=== PATIENT | female | born 1950 | race Caucasian/White ===

== ENCOUNTER 2017-08-18 08:00 | Outpatient (CLI) | payer MEDICARE, BC ==
[2017-08-18 13:04] LABS: BASOPHILS % (AUTO) 0.5 %; EOSINOPHILS # (AUTO) 0.2 10^3/uL (0.0-0.7); EOSINOPHILS % (AUTO) 3.4 %; HCT - HEMATOCRIT 39.3 % (37.0-47.0); HGB - HEMOGLOBIN 13.1 g/dL (12.0-16.0); LYMPHOCYTES # (AUTO) 1.3 10^3/uL (1.5-3.5); LYMPHOCYTES % (AUTO) 24.9 %; MEAN CORPUSCULAR HEMOGLOBIN 30.2 pg (27.0-31.0); MEAN CORPUSCULAR HGB CONC 33.3 g/dL (32.0-36.0); MEAN CORPUSCULAR VOLUME 90.6 fL (81.0-99.0); MEAN PLATELET VOLUME 7.8 fL (7.9-10.8); MONOCYTES # (AUTO) 0.3 10^3/uL (0.0-1.0); MONOCYTES % (AUTO) 6.2 %; NEUTROPHILS # (AUTO) 3.3 10^3/uL (1.5-6.6); RED BLOOD COUNT 4.34 10^6/uL (4.20-5.40); RED CELL DISTRIBUTION WIDTH 12.9 % (12.0-15.0); UNCORRECTED WHITE BLOOD COUNT 5.1 x10^3/uL; WHITE BLOOD COUNT 5.1 x10^3/uL (4.8-10.8)
[2017-08-18 13:31] LABS: ALBUMIN/GLOBULIN RATIO 1.5 (1.0-2.2); BILIRUBIN,TOTAL 0.7 mg/dL (0.2-1.0); BUN - BLOOD UREA NITROGEN 19 mg/dL (6-20); CALCIUM 9.5 mg/dL (8.5-10.3); CARBON DIOXIDE - CO2 27 mmol/L (21-32); CHLORIDE 105 mmol/L (101-111); CHOL/HDL RATIO 4.4 (<4.4); CHOLESTEROL 174 mg/dL; GFR - MDRD 56 (>89); GLUCOSE 90 mg/dL (70-100); HDL CHOLESTEROL 40 mg/dL; LDL/HDL RATIO 2.8 (<4.4); POTASSIUM 4.2 mmol/L (3.5-5.0); SODIUM 139 mmol/L (135-145); TOTAL PROTEIN 7.5 g/dL (6.7-8.2); TRIGLYCERIDES 116 mg/dL; VLDL CHOLESTEROL 23 mg/dL
== END 2017-08-18 08:01 | disposition home or self-care (01) ==
LOC: LAB.WCP 08:00
PROVIDERS: ATTEND Physician Assistant Medical
DX: Z00.00 Encounter for general adult medical examination without abnormal findings (principal); E78.5 Hyperlipidemia, unspecified
CPT/HCPCS: 36415; 80053; 80061; 84443; 85025

== ENCOUNTER 2017-09-29 08:07 | Outpatient (CLI) | payer MEDICARE, OTHER ==
--- NOTE | 2017-10-01 09:38 | Mammography Report ---
DIGITAL SCREENING MAMMOGRAM: 09/29/2017 CLINICAL INDICATION: A 67-year-old nulliparous patient, with history of benign biopsy and bilateral reduction, for screening. COMPARISON: 06/2016, 03/2015, 03/2014, 07/2012, 02/2011, 11/2009. TECHNIQUE: Routine CC and MLO projections were obtained of the breasts. FINDINGS: The breasts demonstrate scattered fibroglandular densities bilaterally. Coarse and punctate, typically benign calcifications are present. Postsurgical changes are stable. No suspicious masses, clustered microcalcifications, or regions of architectural distortion are identified. IMPRESSION: BENIGN FINDINGS. RECOMMENDATION: ROUTINE ANNUAL SCREENING UNLESS OTHERWISE CLINICALLY INDICATED. BIRADS CATEGORY 2 - BENIGN FINDINGS. STANDARD QUALIFYING STATEMENTS 1. This examination was reviewed with the aid of Computer-Aided Detection (CAD). 2. A negative or benign imaging report should not delay biopsy if clinically suspicious findings are present. Consider surgical consultation if warranted. More than 5% of cancers are not identified by imaging. 3. Dense breasts may obscure an underlying neoplasm. brendon TD: 10/01/2017 09:37 BUTCH
== END 2017-09-29 08:08 | disposition home or self-care (01) ==
LOC: DI 08:07
PROVIDERS: ATTEND Physician Assistant Medical
DX: Z12.31 Encounter for screening mammogram for malignant neoplasm of breast (principal)
CPT/HCPCS: 77067

== ENCOUNTER 2018-09-11 15:42 | Emergency (ER) | payer MEDICARE, OTHER ==
--- NOTE | 2018-09-11 16:38 | XRAY Report ---
Reason: Trauma Procedure Date: 09/11/2018 Accession Number: [id number] / [id number] Procedure: XR - Wrist 4 View LT CPT Code: FULL RESULT: EXAM: LEFT WRIST RADIOGRAPHY EXAM DATE: 09/11/2018 04:03 PM. CLINICAL HISTORY: Trauma. Fell onto left wrist, most pain on lateral side of wrist. COMPARISON: HAND 3 VIEW RT 07/04/2015 6:32 PM. TECHNIQUE: 4 views. FINDINGS: Bones: Distal radial articular lucency seen best on the PA view, could represent artifact versus a nondisplaced acute distal radial fracture. A 1 week follow-up x-ray could reevaluate for evidence of healing. Moderate dorsal wrist soft tissue swelling. Otherwise, no evidence for acute fracture. Joints: Minimal first carpometacarpal osteoarthritis. No subluxation. IMPRESSION: Distal radial articular lucency seen best on the PA view, could represent artifact versus a nondisplaced acute distal radial fracture. A 1 week follow-up x-ray could reevaluate for evidence of healing. Moderate dorsal wrist soft tissue swelling. Otherwise, no evidence for acute fracture. RADIA
[2018-09-11 20:12] VITALS: BP 144/63
== END 2018-09-11 17:20 | disposition left against medical advice (07) ==
LOC: ED 15:42
DX: M25.532 Pain in left wrist (principal); Z53.21 Procedure and treatment not carried out due to patient leaving prior to being seen by health care provider

== ENCOUNTER 2018-09-11 23:43 | Emergency (ER) | payer MEDICARE, OTHER ==
[2018-09-11 23:55] VITALS: BP 127/64
--- NOTE | 2018-09-12 00:46 | ED Physician Documentation ---
PD HPI UPPER EXT INJURY - Stated complaint Stated Complaint: LT HAND INJURY - Chief complaint Chief Complaint: Ext Problem - History obtained from History obtained from: Patient - History of Present Illness Location: Left, Wrist Type of injury: Fall Timing - onset: Enter time (13:00), Today Timing - details: Abrupt onset Pain level now: 10 Improved by: Rest Worsened by: Moving, Palpating Associated symptoms: Swelling. No: Weakness, Numbness, Discolored Contributing factors: No: Anticoagulated - Additonal information Additional information: fell backwards onto outstretched LUE, sudden onset left wrist pain. Patient is right hand dominant. Incident occurred at 1 PM today. She was in the ED earlier today, had left wrist xrays but left before results could be reviewed with patient. Returns due to ongoing/worsening pain left wrist. Review of Systems Musculoskeletal: reports: Joint pain, Joint swelling Neurologic: denies: Focal weakness, Numbness PD PAST MEDICAL HISTORY - Past Medical History Past Medical History: Yes Cardiovascular: None Respiratory: None Neuro: None Endocrine/Autoimmune: None GI: GERD HEATING ENGINEER: None : None HEENT: None Psych: None Musculoskeletal: None Derm: None - Past Surgical History Past Surgical History: Yes /HEATING ENGINEER: Hysterectomy, Oophrectomy - Present Medications Home Medications: Ambulatory Orders Medication Instructions Recorded Confirmed HYDROcodone/ACET 10/325 [[place] 10 1 tab ORAL TID 07/04/15 07/04/15 mg/325 mg] Lansoprazole [Prevacid] 15 mg ORAL DAILY 07/04/15 07/04/15 Sertraline HCl [Zoloft] 75 mg ORAL DAILY 07/04/15 07/04/15 Atorvastatin [Lipitor] 09/11/18 09/11/18 - Allergies Allergies/Adverse Reactions: Allergies Allergy/AdvReac Type Severity Reaction Status Date / Time No Known Drug Allergies Allergy Verified 09/11/18 23:55 - Social History Does the pt smoke?: No Smoking Status: Never smoker Does the pt drink ETOH?: No Does the pt have substance abuse?: No - Immunizations Immunizations are current?: Yes - POLST Patient has POLST: No PD ED PE NORMAL - Vitals Vital signs reviewed: Yes - General General: Alert and oriented X 3, Well developed/nourished, Other (appears uncomfortable) - Neuro Neuro: No motor deficit, No sensory deficit PD ED PE EXPANDED - Extremities MO UE/Hands Visual: 1 - swelling, tenderness Results - Vitals Vitals: Oxygen O2 Source Room air PD MEDICAL DECISION MAKING - ED course Complexity details: considered differential, d/w patient ED course: reviewed xrays (performed on previous ED visit). suspicious for distal radius fracture, and clinical findings (swelling, tenderness) with this location. Patient appears to be uncomfortable, but she declines analgesia; she says she has pain medication at home and does not want anything else Departure - Departure Disposition: 01 Home, Self Care Clinical Impression: Distal radius fracture, left Qualifiers: Encounter type: initial encounter Fracture type: closed Fracture morphology: unspecified fracture morphology Qualified Code(s): S52.502A - Unspecified fracture of the lower end of left radius, initial encounter for closed fracture Condition: Good Instructions: ED Fx Wrist General Follow-Up: Juan Jose Gamez MD [Provider Admit Priv/Credential] - Within 1 week Discharge Date/Time: 09/12/18 01:29
== END 2018-09-12 01:29 | disposition home or self-care (01) ==
LOC: ED 23:43
DX: S52.502A Unspecified fracture of the lower end of left radius, initial encounter for closed fracture (principal); W18.30XA Fall on same level, unspecified, initial encounter; W22.09XA Striking against other stationary object, initial encounter
CPT/HCPCS: 99283

== ENCOUNTER 2018-11-10 08:00 | Outpatient (CLI) | payer MEDICARE, OTHER ==
[2018-11-10 12:59] LABS: BASOPHILS % (AUTO) 0.4 %; EOSINOPHILS # (AUTO) 0.1 10^3/uL (0.0-0.7); EOSINOPHILS % (AUTO) 2.6 %; HGB - HEMOGLOBIN 14.4 g/dL (12.0-16.0); LYMPHOCYTES # (AUTO) 1.2 10^3/uL (1.5-3.5); LYMPHOCYTES % (AUTO) 22.1 %; MEAN CORPUSCULAR HEMOGLOBIN 29.8 pg (27.0-31.0); MEAN CORPUSCULAR HGB CONC 32.5 g/dL (32.0-36.0); MEAN CORPUSCULAR VOLUME 91.6 fL (81.0-99.0); MEAN PLATELET VOLUME 8.2 fL (7.9-10.8); MONOCYTES # (AUTO) 0.3 10^3/uL (0.0-1.0); MONOCYTES % (AUTO) 6.3 %; NEUTROPHILS # (AUTO) 3.8 10^3/uL (1.5-6.6); NEUTROPHILS % (AUTO) 68.6 %; PLT - PLATELET COUNT 261 10^3/uL (130-450); RED BLOOD COUNT 4.83 10^6/uL (4.20-5.40); RED CELL DISTRIBUTION WIDTH 13.1 % (12.0-15.0); WHITE BLOOD COUNT 5.5 x10^3/uL (4.8-10.8)
[2018-11-10 13:09] LABS: ALBUMIN 4.5 g/dL (3.2-5.5); ALBUMIN/GLOBULIN RATIO 1.5 (1.0-2.2); ALKALINE PHOSPHATASE 83 IU/L (42-121); ALT ALANINE AMINOTRANSFERASE 37 IU/L (10-60); AST ASPARTATE AMINOTRANSFERASE 29 IU/L (10-42); BILIRUBIN,TOTAL 0.7 mg/dL (0.2-1.0); BUN - BLOOD UREA NITROGEN 24 mg/dL (6-20); CALCIUM 9.4 mg/dL (8.5-10.3); CARBON DIOXIDE - CO2 27 mmol/L (21-32); CHLORIDE 97 mmol/L (101-111); CHOL/HDL RATIO 4.1 (<4.4); CHOLESTEROL 188 mg/dL; CREATININE 0.8 mg/dL (0.4-1.0); GFR - MDRD 72 (>89); GLUCOSE 99 mg/dL (70-100); HDL CHOLESTEROL 46 mg/dL; LDL CHOLESTEROL,CALCULATED 117 mg/dL; LDL/HDL RATIO 2.5 (<4.4); SODIUM 132 mmol/L (135-145); TOTAL PROTEIN 7.6 g/dL (6.7-8.2); VLDL CHOLESTEROL 25 mg/dL
== END 2018-11-10 23:59 | disposition home or self-care (01) ==
LOC: LAB.WCP 08:00
PROVIDERS: ATTEND Family Medicine
DX: E78.5 Hyperlipidemia, unspecified (principal); Z51.81 Encounter for therapeutic drug level monitoring
CPT/HCPCS: 36415; 80053; 80061; 83721; 85025

== ENCOUNTER 2018-11-30 08:00 | Outpatient (CLI) | payer MEDICARE, OTHER | END 2018-11-30 23:59 | disposition home or self-care (01) | LOC: LAB.R 08:00 | PROVIDERS: ATTEND Physician Assistant Medical | DX: R35.0 Frequency of micturition (principal) | CPT/HCPCS: 87086 ==

== ENCOUNTER 2019-03-18 08:00 | Outpatient (CLI) | payer MEDICARE, OTHER ==
[2019-03-18 18:54] LABS: BASOPHILS % (AUTO) 0.4 %; EOSINOPHILS # (AUTO) 0.2 10^3/uL (0.0-0.7); EOSINOPHILS % (AUTO) 3.8 %; HGB - HEMOGLOBIN 12.8 g/dL (12.0-16.0); LYMPHOCYTES # (AUTO) 1.4 10^3/uL (1.5-3.5); LYMPHOCYTES % (AUTO) 29.4 %; MEAN CORPUSCULAR HGB CONC 30.8 g/dL (32.0-36.0); MEAN CORPUSCULAR VOLUME 97.4 fL (81.0-99.0); MEAN PLATELET VOLUME 10.2 fL (7.9-10.8); MONOCYTES # (AUTO) 0.3 10^3/uL (0.0-1.0); MONOCYTES % (AUTO) 6.5 %; NEUTROPHILS # (AUTO) 2.9 10^3/uL (1.5-6.6); NEUTROPHILS % (AUTO) 59.7 %; PLT - PLATELET COUNT 253 10^3/uL (130-450); RED BLOOD COUNT 4.27 10^6/uL (4.20-5.40); RED CELL DISTRIBUTION WIDTH 12.2 % (12.0-15.0); WHITE BLOOD COUNT 4.8 x10^3/uL (4.8-10.8)
[2019-03-18 19:12] LABS: ALBUMIN 4.4 g/dL (3.2-5.5); ALBUMIN/GLOBULIN RATIO 1.7 (1.0-2.2); BILIRUBIN,TOTAL 0.9 mg/dL (0.2-1.0); CALCIUM 9.4 mg/dL (8.5-10.3); CREATININE 0.7 mg/dL (0.4-1.0)
[2019-03-18 19:27] LABS: THYROID STIMULATING HORMONE 0.54 uIU/mL (0.34-5.60)
== END 2019-03-18 23:59 | disposition home or self-care (01) ==
LOC: LAB.WCP 08:00
PROVIDERS: ATTEND Physician Assistant Medical
DX: G45.4 Transient global amnesia (principal); F32.9 Major depressive disorder, single episode, unspecified; G90.50 Complex regional pain syndrome I, unspecified
CPT/HCPCS: 36415; 80053; 82607; 84443; 85025

== ENCOUNTER 2019-04-21 08:43 | Outpatient (CLI) | payer MEDICARE, OTHER ==
--- NOTE | 2019-04-22 08:16 | DEXA Report ---
Reason: POSTMENOPAUSAL STATUS Procedure Date: 04/21/2019 Accession Number: [id number] / [id number] Procedure: DEX - Dexa Spine and/or Hip CPT Code: FULL RESULT: EXAM: Dexa Spine and/or Hip DATE: 04/21/2019 9:15 AM CLINICAL HISTORY: POSTMENOPAUSAL STATUS TECHNIQUE: Dual energy x-ray absorptiometry (DXA) was performed on a Marcandi System. Regions measured are the AP Spine, femoral neck, and if needed forearm. COMPARISON: None. In accordance with the International Society for Clinical Densitometry (ISCD) guidelines, data from previous exams may be reanalyzed using current recommendations and techniques. This is done to allow a more accurate basis for comparison with the current study. FINDINGS: The data for the lumbar spine is as follows: BMD (g/cm/cm) T-SCORE Z-SCORE REGION L1 0.880 -2.1 -0.8 L2 1.128 -0.6 0.7 L3 1.171 -0.2 1.0 L4 1.177 -0.2 1.1 TOTAL 1.101 -0.7 0.6 NOTE: All evaluable vertebrae are used for classification The data for the hip is as follows: BMD (g/cm/cm) T-SCORE Z-SCORE REGION Neck 0.855 -1.3 0.0 TOTAL 0.916 -0.7 0.3 NOTE: The femoral neck or total proximal femur, whichever is lowest, is used for classification. IMPRESSION: THE WHO CLASSIFICATION BASED ON THE INTERNATIONAL REFERENCE STANDARD IS OSTEOPENIA. THE FRACTURE RISK IS INCREASED. RECOMMENDATION: Patients with diagnosis of osteoporosis or osteopenia should have regular bone mineral density assessment. For those eligible for Medicare, routine testing is allowed once every 2 years. Testing frequency can be increased for patients who have rapidly progressing disease or for those who are receiving medical therapy to restore bone mass. COMMENT: World Health Organization (WHO) definitions for osteoporosis and osteopenia: NORMAL BMD: T-score at -1.0 or higher, fracture risk is low OSTEOPENIA BMD: T-score between -1.0 and -2.5, fracture risk is increased. OSTEOPOROSIS BMD: T-score at -2.5 or lower, fracture risk is high. National Osteoporosis Foundation recommends: 1. Obtain adequate dietary calcium (at least 1200 mg per day) and vitamin D (400-800 international units per day). 2. Participate, as appropriate, in regular weightbearing and muscle-strengthening exercise. 3. Avoid tobacco use and reduce alcohol and caffeine intake. 4. For more detailed information see the website at www.NOF.org.
== END 2019-04-21 08:44 | disposition home or self-care (01) ==
LOC: DI 08:43
PROVIDERS: ATTEND Physician Assistant Medical
DX: M85.88 Other specified disorders of bone density and structure, other site (principal)
CPT/HCPCS: 77080

== ENCOUNTER 2019-05-23 09:24 | Emergency (ER) | payer MEDICARE, OTHER ==
--- NOTE | 2019-05-23 09:34 | ED Physician Documentation ---
PD HPI BACK INJURY - Stated complaint Stated Complaint: GLF-COCCYX PX - History obtained from History obtained from: Patient - History of Present Illness Type of injury: Fall (slipped o wet floor in kitchen and landed onto buttock/lower back. Pain in sacral area, and also with pain to posterior thighs bilaterally.) Where injury occurred: Home Timing - onset: Yesterday Timing - details: Abrupt onset, Waxing and waning Quality: Pain Improved by: Rest Worsened by: Moving, Palpating, Other (sitting on gluteal area with pain to right side.) Associated symptoms: No: Fever, Weakness, Numbness, Incontinent of urine Contributing factors: No: Anticoagulated, Work related Similar symptoms before: Has not had sx before (has arthritis in back but not recent problems nor pains.) Recently seen: Not recently seen Review of Systems Constitutional: denies: Fever, Chills, Myalgias GI: denies: Abdominal Pain, Nausea, Vomiting Skin: denies: Rash, Abrasion (s), Laceration (s) Musculoskeletal: reports: Back pain. denies: Neck pain Neurologic: denies: Focal weakness, Numbness, Altered mental status, Headache, Head injury PD PAST MEDICAL HISTORY - Past Medical History Cardiovascular: None Respiratory: None Neuro: None Endocrine/Autoimmune: None GI: GERD HEEL EMERY BUFFER: None : None HEENT: None Psych: None Musculoskeletal: None Derm: None - Past Surgical History Past Surgical History: Yes /HEEL EMERY BUFFER: Hysterectomy, Oophrectomy - Present Medications Home Medications: Ambulatory Orders Medication Instructions Recorded Confirmed HYDROcodone/ACET 10/325 [[place] 10 1 tab ORAL TID 07/04/15 07/04/15 mg/325 mg] Lansoprazole [Prevacid] 15 mg ORAL DAILY 07/04/15 07/04/15 Sertraline HCl [Zoloft] 75 mg ORAL DAILY 07/04/15 07/04/15 Atorvastatin [Lipitor] 09/11/18 09/11/18 Methocarbamol [Robaxin] 500 mg PO Q6H PRN #30 tablet 05/23/19 Oxycodone HCl/Acetaminophen 1 each PO Q6H PRN #18 tablet 05/23/19 [Percocet 5-325 mg Tablet] dexAMETHasone [Decadron] 4 mg PO DAILY #5 tablet 05/23/19 - Allergies Allergies/Adverse Reactions: Allergies Allergy/AdvReac Type Severity Reaction Status Date / Time No Known Drug Allergies Allergy Verified 05/23/19 09:30 - Social History Does the pt smoke?: No Smoking Status: Never smoker Does the pt drink ETOH?: No Does the pt have substance abuse?: No - Immunizations Immunizations are current?: Yes - POLST Patient has POLST: No PD ED PE NORMAL - Vitals Vital signs reviewed: Yes - General General: Alert and oriented X 3, No acute distress, Well developed/nourished - HEENT HEENT: Atraumatic - Neck Neck: Supple, no meningeal sign, No bony TTP - Cardiac Cardiac: RRR, No murmur - Respiratory Respiratory: Clear bilaterally - Abdomen Abdomen: Soft, Non tender - Back Back: No CVA TTP, Other (some tenderness to percussion lower lumbar/sacral area without defromity.) - Derm Derm: Normal color, Warm and dry, No rash - Extremities Extremities: No tenderness to palpate, No edema, No calf tenderness / cord - Neuro Neuro: Alert and oriented X 3, No motor deficit, No sensory deficit, Other (normal reflexes at the knees. ) Results - Vitals Vitals: Vital Signs - 24 hr 05/23/19 05/23/19 09:26 11:58 Temperature 36.1 C L 36.7 C Heart Rate 78 67 Respiratory 19 15 Rate Blood Pressure 142/84 H 132/81 H O2 Saturation 99 97 Oxygen O2 Source Room air - Rads (name of study) lumbar and pelvic CT Radiology: Prelim report reviewed (disc space loss of height L2 area. General arthritic changes. No acute fractures), See rad report PD MEDICAL DECISION MAKING - ED course Complexity details: reviewed results, considered differential (has pain in lower back and sacral area with feeling of pain into backs of legs. Will get imaging to ensure no fractures nor obvious cord impact. ), d/w patient Departure - Departure Disposition: 01 Home, Self Care Clinical Impression: Fall from slip, trip, or stumble Qualifiers: Encounter type: initial encounter Qualified Code(s): W01.0XXA - Fall on same level from slipping, tripping and stumbling without subsequent striking against object, initial encounter Contusion of sacral region Qualifiers: Encounter type: initial encounter Qualified Code(s): S30.0XXA - Contusion of lower back and pelvis, initial encounter Clinical Impression: (Ruled Out): Fracture of lumbar vertebra Condition: Stable Record reviewed to determine appropriate education?: Yes Instructions: ED Contusion Back Follow-Up: Liana Wheatley PA-C [Primary Care Provider] - Prescriptions: dexAMETHasone [Decadron] 4 mg PO DAILY #5 tablet Methocarbamol [Robaxin] 500 mg PO Q6H PRN #30 tablet PRN Reason: Spasms Oxycodone HCl/Acetaminophen [Percocet 5-325 mg Tablet] 1 each PO Q6H PRN #18 tablet PRN Reason: pain Comments: Continue usual medications. To this add Percocet 3 or 4 times a day as added pain medicine if needed for pain. Use the anti-inflammatory of Decadron steroid daily for 5 days. Also add some [id number] nonsteroidal anti-inflammatory such as naproxen or ibuprofen twice daily. Robaxin muscle relaxant if needed for stiffness. Recheck if not improving over the next several days to week. Treatment for your back such as massage heat gentle range of motion are all good as well. Discharge Date/Time: 05/23/19 11:58
[2019-05-23] MEDS ORDERED: oxyCODONE 5 MG TABLET PO STA (09:52)
[2019-05-23] MEDS ORDERED: DEXAMETHASONE 10 MG/ML VIAL PO STA (09:54)
[2019-05-23] MEDS ORDERED: CHERRY SYRUP 10 ML UDC PO ONE (09:54)
--- NOTE | 2019-05-23 10:58 | CT Report ---
Reason: fell onto buttock last evening; lumbar/sacral pain Procedure Date: 05/23/2019 Accession Number: [id number] / [id number] Procedure: CT - PELVIS WO CPT Code: FULL RESULT: EXAM: CT BONY PELVIS WITHOUT CONTRAST EXAM DATE: 05/23/2019 10:31 AM. CLINICAL HISTORY: Fell onto buttock last evening; lumbar/sacral pain. COMPARISON: ABDOMEN/PELVIS W/ 05/20/2013 4:18 PM. TECHNIQUE: Thin-section axial images were acquired of the pelvis without contrast. Post-processing: Coronal and sagittal reformats. Other: None. In accordance with CT protocol optimization, one or more of the following dose reduction techniques were utilized for this exam: automated exposure control, adjustment of mA and/or KV based on patient size, or use of iterative reconstructive technique. FINDINGS: Bones: No fracture or bone lesion. Sacroiliac Joints: No widening, erosions, or sclerosis. Symphysis Pubis: Moderate degenerative changes are present at the pubic symphysis. Right Hip: The joint space is preserved. No calcified loose bodies. Tiny osteophytes indicate osteoarthritis. Left Hip: The joint space is preserved. No calcified loose bodies. Tiny osteophytes indicate osteoarthritis. Musculature: Normal. No fatty atrophy. Pelvic Cavity: The visualized bowel, bladder, and reproductive organs are unremarkable on this noncontrast exam. Other: No lymphadenopathy. No free air or free fluid. The other visualized soft tissues are unremarkable. IMPRESSION: Minimal bilateral hip osteoarthritis. Otherwise, normal pelvis CT. No fracture or other acute abnormality. RADIA
--- NOTE | 2019-05-23 10:58 | CT Report ---
Reason: fell onto buttock last evening; lumbar/sacral pain Procedure Date: 05/23/2019 Accession Number: [id number] / [id number] Procedure: CT - LUMBAR SPINE WO CPT Code: FULL RESULT: EXAM: CT LUMBAR SPINE WITHOUT CONTRAST EXAM DATE: 05/23/2019 10:31 AM. CLINICAL HISTORY: Fell onto buttock last evening; lumbar/sacral pain. COMPARISONS: LUMBAR SPINE W/O 05/23/2019 10:09 AM. TECHNIQUE: Thin-section axial images were acquired of the lumbar spine from T12 to S1 without contrast. Post-processing: Coronal and sagittal reformats. Other: None. In accordance with CT protocol optimization, one or more of the following dose reduction techniques were utilized for this exam: automated exposure control, adjustment of mA and/or KV based on patient size, or use of iterative reconstructive technique. FINDINGS: Alignment: Grade 1 anterior listhesis of L4 on L5. Bones: Five [id number]-padboya lumbar vertebral bodies are present. No fractures or bone lesions. Disk Levels/Facets: T12-L1: Unremarkable. L1-L2: Unremarkable. L2-L3: Severe disk space narrowing. L3-L4: Unremarkable. L4-L5: Mild to moderate degenerative disk disease. L5-S1: Moderate degenerative disk disease. Musculature: Normal. No fatty atrophy. Other: The visualized retroperitoneum is unremarkable. IMPRESSION: 1. Grade 1 anterior listhesis of L4 and L5. 2. Severe disk space narrowing at L2-L3. 3. Mild to moderate degenerative disk disease at L4-L5 and moderate degenerative disk disease at L5-S1. 4. No fracture identified. RADIA
[2019-05-23 11:58] VITALS: BP 132/81
== END 2019-05-23 11:58 | disposition home or self-care (01) ==
LOC: ED 09:24
DX: S30.0XXA Contusion of lower back and pelvis, initial encounter (principal); W01.0XXA Fall on same level from slipping, tripping and stumbling without subsequent striking against object, initial encounter; Y92.000 Kitchen of unspecified non-institutional (private) residence as the place of occurrence of the external cause
CPT/HCPCS: 72131; 72192; 99284; A9270

== ENCOUNTER 2019-06-22 08:46 | Outpatient (CLI) | payer MEDICARE, OTHER ==
--- NOTE | 2019-06-22 15:44 | Mammography Report ---
Reason: SCREENING MAMMO Procedure Date: 06/22/2019 Accession Number: [id number] / [id number] Procedure: KINJAL - Screening Mammo w/Marshall CPT Code: FULL RESULT: EXAM: Screening Mammo w/Marshall DATE: 06/22/2019 9:32 AM CLINICAL HISTORY: Screening TECHNIQUE: (B) - Bilateral CC and MLO views were obtained. COMPARISON: 09/29/2017, 06/25/2016, 04/20/2015 PARENCHYMAL PATTERN: (A) - The breasts demonstrate scattered fibroglandular densities bilaterally. FINDINGS: There are no suspicious masses, calcifications, or areas of distortion. IMPRESSION: Negative examination. BI-RADS category 1. RECOMMENDATION: (ANNUAL) - Recommend routine annual screening mammography. BI-RADS CATEGORY: (1) - Negative. STANDARD QUALIFYING STATEMENTS: 1. This examination was not reviewed with the aid of Computer-Aided Detection (CAD). 2. A negative or benign imaging report should not preclude biopsy if clinically suspicious findings are present. 3. Dense breasts may obscure an underlying neoplasm. 4. This examination was reviewed with the aid of 3D breast imaging (tomosynthesis).
== END 2019-06-22 08:47 | disposition home or self-care (01) ==
LOC: DI 08:46
DX: Z12.31 Encounter for screening mammogram for malignant neoplasm of breast (principal)
CPT/HCPCS: 77063; 77067

== ENCOUNTER 2019-08-14 07:25 | Emergency (ER) | payer MEDICARE, OTHER ==
[2019-08-14 07:36] VITALS: BP 140/91
== END 2019-08-14 07:38 | disposition left against medical advice (07) ==
LOC: ED 07:25
DX: Z53.21 Procedure and treatment not carried out due to patient leaving prior to being seen by health care provider (principal)

== ENCOUNTER 2020-03-29 12:13 | Emergency (ER) | payer MEDICARE, OTHER ==
[2020-03-29 12:21] VITALS: BP 139/88
[2020-03-29] MEDS ORDERED: TETANUS/DIPHTHERIA/PERTUSSIS 0.5 ML SYRINGE IM ONE (12:35)
--- NOTE | 2020-03-29 12:35 | ED Physician Documentation ---
History of Present Illness - Stated complaint Stated Complaint: GLF - Chief complaint Chief Complaint: Ext Problem - History obtained from History obtained from: Patient - History of Present Illness Timing: Prior to arrival, How many hours ago (1) Pain level max: 8 Pain level now: 3 - Additonal information Additional information: 69-year-old female presents to the emergency department with chief complaint of left elbow pain and right knee pain following a fall approximately 1 hour prior to arrival. Patient reports that she was walking and tripped on a parking curb.She did not have any loss of consciousness. She has some minor abrasions on her right hand. Patient has a history of osteopenia but not osteoporosis. She takes calcium and vitamin D supplementation. Pt reports that she is on norco for a chronic pain syndrome; declines analgesia today Review of Systems Constitutional: denies: Fever, Chills Cardiac: denies: Chest pain / pressure, Palpitations Respiratory: denies: Dyspnea GI: denies: Abdominal Pain, Abdominal Swelling, Nausea, Vomiting Skin: reports: Abrasion (s) (right hand) Musculoskeletal: reports: Extremity pain, Joint pain, Joint swelling Neurologic: denies: Generalized weakness, Focal weakness, Numbness, Syncope, Seizure, Confused, Headache, Head injury, LOC PD PAST MEDICAL HISTORY - Past Medical History Cardiovascular: None Respiratory: None Neuro: None Endocrine/Autoimmune: None GI: GERD DAY CARE HOME MOTHER: None : None HEENT: None Psych: None Musculoskeletal: None Derm: None - Past Surgical History Past Surgical History: Yes /DAY CARE HOME MOTHER: Hysterectomy, Oophrectomy - Present Medications Home Medications: Ambulatory Orders Medication Instructions Recorded Confirmed HYDROcodone/ACET 10/325 [[place] 10 1 tab ORAL TID 07/04/15 07/04/15 mg/325 mg] Sertraline HCl [Zoloft] 75 mg ORAL DAILY 07/04/15 07/04/15 Atorvastatin [Lipitor] 09/11/18 09/11/18 - Allergies Allergies/Adverse Reactions: Allergies Allergy/AdvReac Type Severity Reaction Status Date / Time No Known Drug Allergies Allergy Verified 03/29/20 12:21 - Social History Does the pt smoke?: No Smoking Status: Never smoker Does the pt drink ETOH?: No Does the pt have substance abuse?: No - Immunizations Immunizations are current?: Yes - POLST Patient has POLST: No PD ED PE EXPANDED - General General: Alert, No acute distress, Well developed/nourished - Extremities Extremities: Left elbow (Normal flexion extension of the elbow however it is painful. Medial olecranon tenderness. No swelling, or ecchymosis.), Left forearm (Pain in the left forearm which radiates from the medial elbow. Mild swelling no deformity or ecchymosis. 2+ distal radial pulse), Right knee (Right knee with normal flexion and extension. Patient has an antalgic gait on right leg. No laxity in the joint. However there is tenderness over the fibular head. Ecchymosis medially) Results - Vitals Vitals: Vital Signs - 24 hr 03/29/20 12:16 Temperature 36.6 C Heart Rate 58 L Respiratory 18 Rate Blood Pressure 139/88 H O2 Saturation 100 Oxygen O2 Source Room air - Rads (name of study) Left elbow: Radiology: Final report received (Minimally displaced lateral radial head fracture with small to moderate joint effusion) right knee Radiology: Final report received (No acute right knee fracture dislocation. Mild tricompartmental osteoarthritis.) left forearm Radiology: Final report received (Subtle fracture involving lateral aspect of radial head. No other forearm fracture or dislocation is seen.) PD MEDICAL DECISION MAKING - ED course Complexity details: reviewed results, re-evaluated patient, d/w patient ED course: 69-year-old female presented to the emergency department after ground-level fall this afternoon when she tripped over a parking curb. -X-ray of the left elbow reveals a minimally displaced lateral radial head fracture. She was placed in a long-arm posterior splint. Distal pulses and CMST preserved post splinting. We will refer her to orthopedics for f/u - X-ray of the right knee did not show any fracture. She does have findings of osteoarthritis however. I recommend an Daniel wrap on the right knee. - Patient does have a history of a chronic pain syndrome and is already taking hydrocodone at home. We will not write for a new or different prescription today. Departure - Departure Disposition: 01 Home, Self Care Clinical Impression: Fracture of radial head, left, closed Qualifiers: Encounter type: initial encounter Fracture alignment: nondisplaced Qualified Code(s): S52.125A - Nondisplaced fracture of head of left radius, initial encounter for closed fracture Contusion of right knee Qualifiers: Encounter type: initial encounter Qualified Code(s): S80.01XA - Contusion of right knee, initial encounter Condition: Stable Instructions: ED Fx Upper Extr Ch Follow-Up: [facility] [Provider Group] Comments: The x-ray today shows that you have a left radial head fracture in your elbow. We have splinted this. It is important that you call the orthopedics department for follow-up. I would like you to be seen within the next 7 to 10 days. Keep your splint clean and dry. If it gets wet do not try and change it at home return to the emergency department to have it replaced. If you develop numbness or tingling in the hand or have a cool extremity also return to the emergency department The x-ray of your knee does not show a fracture. You do have some arthritis developing in the knee. I would recommend that you wear the Daniel wrap when bed and ice the knee for the next 2 to 3 days.
--- NOTE | 2020-03-29 13:22 | XRAY Report ---
PROCEDURE: Knee 3 View RT INDICATIONS: f/o fx; fibular head tenderness s/p fall TECHNIQUE: 3 views of the right knee(s) were acquired. COMPARISON: None. FINDINGS: Bones: No fractures or dislocations. Mild tricompartmental osteoarthritis is seen. No suspicious dwight [place] lesions. Soft tissues: No joint effusion. No suspicious soft tissue calcifications. IMPRESSION: No acute right knee fracture or dislocation. Mild tricompartmental osteoarthritis. Reviewed by: Robin Landry MD on 03/29/2020 1:21 PM PDT Approved by: Robin Landry MD on 03/29/2020 1:21 PM PDT Station ID: [id number]
--- NOTE | 2020-03-29 13:23 | XRAY Report ---
PROCEDURE: Elbow 3 View LT INDICATIONS: r/o fx s/p fall TECHNIQUE: 3 views of the elbow were acquired. COMPARISON: None FINDINGS: Bones: Subtle minimally displaced fracture involving lateral aspect of radial head is seen. No other fracture or dislocation. No suspicious bony lesions. Soft tissues: Mildly displaced anterior fat pad is noted suggestive of small to moderate joint effusi on. No suspicious soft tissue calcifications. IMPRESSION: Minimally displaced lateral radial head fracture with small to moderate joint effusion. Reviewed by: Robin Landry MD on 03/29/2020 1:22 PM PDT Approved by: Robin Landry MD on 03/29/2020 1:22 PM PDT Station ID: [id number]
--- NOTE | 2020-03-29 13:28 | XRAY Report ---
PROCEDURE: Forearm LT INDICATIONS: r/o fx; s/p fall TECHNIQUE: 2 views of the forearm were acquired. COMPARISON: None FINDINGS: Bones: Irregularity involving the lateral aspect of the radial head is seen just above a slightly dis placed fracture. No other fracture or dislocation is seen in left forearm. No suspicious bony lesion s. Soft tissues: No suspicious soft tissue calcifications or masses. IMPRESSION: Subtle fracture involving lateral aspect of radial head. No other forearm fracture or dislocation is seen. Reviewed by: Robin Landry MD on 03/29/2020 1:27 PM PDT Approved by: Robin Landry MD on 03/29/2020 1:27 PM PDT Station ID: [id number]
== END 2020-03-29 14:29 | disposition home or self-care (01) ==
LOC: ED 12:13
DX: S52.125A Nondisplaced fracture of head of left radius, initial encounter for closed fracture (principal); S80.01XA Contusion of right knee, initial encounter; W01.0XXA Fall on same level from slipping, tripping and stumbling without subsequent striking against object, initial encounter; Y93.01 Activity, walking, marching and hiking; Y92.89 Other specified places as the place of occurrence of the external cause
CPT/HCPCS: 29105

== ENCOUNTER 2020-10-30 07:00 | Outpatient (CLI) | payer MEDICARE, OTHER | END 2020-10-30 23:59 | disposition home or self-care (01) | LOC: COV 07:00 | PROVIDERS: ATTEND Surgery | DX: Z01.812 Encounter for preprocedural laboratory examination (principal); K21.9 Gastro-esophageal reflux disease without esophagitis; Z86.010 Personal history of colon polyps; Z20.822 Contact with and (suspected) exposure to COVID-19 ==

== ENCOUNTER 2020-11-02 08:00 | Day surgery (SDC) | payer MEDICARE, OTHER ==
[2020-11-02] MEDS ORDERED: LACTATED RINGERS 1,000 ML IV ONE ×2 (08:35→09:57)
[2020-11-02] MEDS ORDERED: LIDO GARGLE 30 ML BOTTLE ONE (09:31)
[2020-11-02] MEDS ORDERED: fentaNYL 250 MCG/5 ML VIAL ONE (09:33)
[2020-11-02] MEDS ORDERED: MIDAZOLAM 2 MG/2 ML VIAL ONE ×2 (09:33→09:48)
[2020-11-02] MEDS ORDERED: LIDO GARGLE 30 ML BOTTLE PO ONE (09:47)
[2020-11-02 10:16] VITALS: BP 100/53
== END 2020-11-02 08:01 | disposition home or self-care (01) ==
LOC: SDS 08:00
PROVIDERS: ATTEND Surgery
PROC: 0DB78ZX Excision of Stomach, Pylorus, Via Natural or Artificial Opening Endoscopic, Diagnostic (ICD-10-PCS; 2020-11-02)
PROC: 0DB38ZX Excision of Lower Esophagus, Via Natural or Artificial Opening Endoscopic, Diagnostic (ICD-10-PCS; 2020-11-02)
PROC: 0DB48ZX Excision of Esophagogastric Junction, Via Natural or Artificial Opening Endoscopic, Diagnostic (ICD-10-PCS; 2020-11-02)
PROC: 0DB98ZX Excision of Duodenum, Via Natural or Artificial Opening Endoscopic, Diagnostic (ICD-10-PCS; principal; 2020-11-02 09:00)
DX: K21.9 Gastro-esophageal reflux disease without esophagitis (principal); K29.70 Gastritis, unspecified, without bleeding
CPT/HCPCS: 43239; A9270; J3010; J7120

== ENCOUNTER 2020-12-25 09:03 | Outpatient (CLI) | payer MEDICARE, OTHER ==
--- OUTSIDE RECORDS SUMMARY | 2020-12-27 03:04 | EXTERNAL MEDICAL SUMMARY RPT | Continuity of Care Document ---
:1950 Demographics Phone Unavailable Preferred Language Maori Marital Status Unknown Congregation Affiliation Unknown Race Unknown Ethnic Group Unknown Author Organization [facility] Address [address] [place] [address] Phone Care Team Providers Name Role Phone Young Unavailable Unavailable Problems date description facility [id number] Encounter for screening mammogram for [facility] neoplasm of [id number] Nonrheumatic mitral (valve) prolapse I [facility] Social History date description facility [id number]
== END 2020-12-25 09:04 | disposition home or self-care (01) ==
LOC: LAB.N 09:03
PROVIDERS: ATTEND Physician Assistant Medical
DX: Z53.9 Procedure and treatment not carried out, unspecified reason (principal); E78.5 Hyperlipidemia, unspecified

== ENCOUNTER 2021-01-11 07:56 | Day surgery (SDC) | payer MEDICARE, OTHER ==
[2021-01-11] MEDS ORDERED: LACTATED RINGERS 1,000 ML IV ONE (08:28)
[2021-01-11] MEDS ORDERED: MIDAZOLAM 2 MG/2 ML VIAL ONE ×4 (09:16→09:49)
[2021-01-11] MEDS ORDERED: fentaNYL 250 MCG/5 ML VIAL ONE (09:17)
[2021-01-11] MEDS ORDERED: ONDANSETRON 4 MG/2 ML VIAL ONE (10:01)
[2021-01-11] MEDS ORDERED: LACTATED RINGERS 500 ML IV ONE (10:05)
[2021-01-11 10:35] VITALS: BP 113/95
== END 2021-01-11 07:57 | disposition home or self-care (01) ==
LOC: SDS 07:56
PROVIDERS: ATTEND Surgery
PROC: 0DBM8ZZ Excision of Descending Colon, Via Natural or Artificial Opening Endoscopic (ICD-10-PCS; principal; 2021-01-11 09:00)
DX: Z12.11 Encounter for screening for malignant neoplasm of colon (principal); D12.4 Benign neoplasm of descending colon; K64.8 Other hemorrhoids; K64.4 Residual hemorrhoidal skin tags; K57.30 Diverticulosis of large intestine without perforation or abscess without bleeding
CPT/HCPCS: 45380; J3010; J7120

== ENCOUNTER 2021-07-13 09:15 | Outpatient (CLI) | payer MEDICARE, OTHER ==
[2021-07-13 11:49] LABS: BASOPHILS % (AUTO) 0.6 %; EOSINOPHILS # (AUTO) 0.3 10^3/uL (0.0-0.7); EOSINOPHILS % (AUTO) 4.9 %; HCT - HEMATOCRIT 42.6 % (37.0-47.0); HGB - HEMOGLOBIN 13.2 g/dL (12.0-16.0); LYMPHOCYTES # (AUTO) 1.4 10^3/uL (1.5-3.5); LYMPHOCYTES % (AUTO) 27.3 %; MEAN CORPUSCULAR HEMOGLOBIN 29.5 pg (27.0-31.0); MEAN CORPUSCULAR VOLUME 95.3 fL (81.0-99.0); MEAN PLATELET VOLUME 10.3 fL (7.9-10.8); MONOCYTES # (AUTO) 0.4 10^3/uL (0.0-1.0); MONOCYTES % (AUTO) 7.1 %; NEUTROPHILS # (AUTO) 3.1 10^3/uL (1.5-6.6); NEUTROPHILS % (AUTO) 59.7 %; PLT - PLATELET COUNT 295 10^3/uL (130-450); RED BLOOD COUNT 4.47 10^6/uL (4.20-5.40); RED CELL DISTRIBUTION WIDTH 12.4 % (12.0-15.0); WHITE BLOOD COUNT 5.1 x10^3/uL (4.8-10.8)
[2021-07-13 12:27] LABS: ALBUMIN 5.1 g/dL (3.2-5.5); ALKALINE PHOSPHATASE 65 IU/L (42-121); ALT ALANINE AMINOTRANSFERASE 26 IU/L (10-60); AST ASPARTATE AMINOTRANSFERASE 23 IU/L (10-42); BILIRUBIN,TOTAL 0.9 mg/dL (0.2-1.0); BUN - BLOOD UREA NITROGEN 21 mg/dL (6-20); CARBON DIOXIDE - CO2 27 mmol/L (21-32); CHLORIDE 103 mmol/L (101-111); CHOL/HDL RATIO 3.4 (<4.4); CHOLESTEROL 161 mg/dL; CREATININE 0.8 mg/dL (0.4-1.0); GFR - MDRD 71 (>89); GLUCOSE 98 mg/dL (70-100); HDL CHOLESTEROL 48 mg/dL; LDL CHOLESTEROL,CALCULATED 97 mg/dL; SODIUM 139 mmol/L (135-145); TOTAL PROTEIN 7.7 g/dL (6.7-8.2); TRIGLYCERIDES 79 mg/dL; VLDL CHOLESTEROL 16 mg/dL
== END 2021-07-13 23:59 | disposition home or self-care (01) ==
LOC: LAB.WCP 09:15
PROVIDERS: ATTEND Physician Assistant Medical
DX: E78.5 Hyperlipidemia, unspecified (principal); K21.9 Gastro-esophageal reflux disease without esophagitis
CPT/HCPCS: 36415; 80053; 80061; 83721; 85025

== ENCOUNTER 2022-09-25 10:16 | Outpatient (CLI) | payer MEDICARE, OTHER ==
[2022-09-25 10:34] LABS: BASOPHILS % (AUTO) 0.4 %; EOSINOPHILS # (AUTO) 0.3 10^3/uL (0.0-0.7); EOSINOPHILS % (AUTO) 3.8 %; HCT - HEMATOCRIT 44.2 % (37.0-47.0); HGB - HEMOGLOBIN 13.9 g/dL (12.0-16.0); LYMPHOCYTES # (AUTO) 1.5 10^3/uL (1.5-3.5); LYMPHOCYTES % (AUTO) 20.5 %; MEAN CORPUSCULAR HEMOGLOBIN 29.2 pg (27.0-31.0); MEAN CORPUSCULAR HGB CONC 31.4 g/dL (32.0-36.0); MEAN CORPUSCULAR VOLUME 92.9 fL (81.0-99.0); MEAN PLATELET VOLUME 9.7 fL (7.9-10.8); MONOCYTES # (AUTO) 0.4 10^3/uL (0.0-1.0); PLT - PLATELET COUNT 275 10^3/uL (130-450); RED BLOOD COUNT 4.76 10^6/uL (4.20-5.40); RED CELL DISTRIBUTION WIDTH 12.1 % (12.0-15.0); WHITE BLOOD COUNT 7.3 x10^3/uL (4.8-10.8)
[2022-09-25 10:51] LABS: ALBUMIN 4.3 g/dL (3.2-5.5); ALBUMIN/GLOBULIN RATIO 1.6 (1.0-2.2); ALKALINE PHOSPHATASE 78 IU/L (42-121); ALT ALANINE AMINOTRANSFERASE 23 IU/L (10-60); AST ASPARTATE AMINOTRANSFERASE 20 IU/L (10-42); BILIRUBIN,TOTAL 0.7 mg/dL (0.2-1.0); BUN - BLOOD UREA NITROGEN 16 mg/dL (6-20); CALCIUM 9.8 mg/dL (8.5-10.3); CARBON DIOXIDE - CO2 28 mmol/L (21-32); CHLORIDE 99 mmol/L (101-111); CHOL/HDL RATIO 3.8 (<4.4); CHOLESTEROL 152 mg/dL; GFR - MDRD 55 (>89); GLUCOSE 108 mg/dL (70-100); HDL CHOLESTEROL 40 mg/dL; LDL CHOLESTEROL,CALCULATED 94 mg/dL; LDL/HDL RATIO 2.4 (<4.4); POTASSIUM 4.5 mmol/L (3.5-5.0); SODIUM 137 mmol/L (135-145); TRIGLYCERIDES 88 mg/dL; VLDL CHOLESTEROL 18 mg/dL
[2022-09-25 11:03] LABS: THYROID STIMULATING HORMONE 0.92 uIU/mL (0.34-5.60)
== END 2022-09-25 10:17 | disposition home or self-care (01) ==
LOC: LAB 10:16
PROVIDERS: ATTEND Nurse Practitioner
DX: E78.5 Hyperlipidemia, unspecified (principal); Z51.81 Encounter for therapeutic drug level monitoring; F32.A Depression, unspecified
CPT/HCPCS: 36415; 80053; 80061; 83721; 84443; 85025

== ENCOUNTER 2022-11-28 10:09 | Outpatient (CLI) | payer MEDICARE, OTHER ==
--- NOTE | 2022-12-02 11:15 | Mammography Report ---
BILATERAL DIGITAL SCREENING MAMMOGRAM 3D/2D: 11/28/2022 CLINICAL: Routine screening. Comparison is made to exams dated: 09/29/2020 mammogram - [facility], 06/22/2019 mammogram, 09/29/2017 mammogram, and 06/25/2016 mammogram - [facility]. There are scattered areas of fibroglandular density in both breasts (category b / 25%-50% glandular t issue). No significant masses, calcifications, or other findings are seen in either breast. There has been no significant interval change. IMPRESSION: NEGATIVE There is no mammographic evidence of malignancy. A 1 year screening mammogram is recommended. Based on the Tyrer Cuzick model (a risk assessment model) the patients lifetime risk is 3.7% and her 10 year risk is 2.4%. According to the ACR, ACS, and NCCN guidelines, an annual breast MRI exam nika g with mammogram is recommended if the patients lifetime risk is 20% or greater. This exam was interpreted at Station ID: [id number]. NOTE: For mammograms, a report in lay terms will be sent to the patient. Approximately 15% of breast malignancies will not be visualized mammographically. In the management of a palpable breast mass, a negative mammogram must not discourage biopsy of a clinically suspicious lesion. Electronically Signed By: Gary ortega/yari:11/29/2022 16:26:34 letter sent: No_Letter ACR BI-RADS Category 1: Negative 3341F PARENCHYMAL PATTERN: (A) - The breast(s) demonstrate(s) scattered fibroglandular densities. BI-RADS CATEGORY: (1) - 1 Mammogram [id number] 1 year screening LATERALITY: (B)
== END 2022-11-28 10:10 | disposition home or self-care (01) ==
LOC: DI 10:09
DX: Z12.31 Encounter for screening mammogram for malignant neoplasm of breast (principal)

== ENCOUNTER 2022-11-28 10:10 | Outpatient (CLI) | payer MEDICARE, OTHER ==
--- NOTE | 2022-11-28 11:49 | DEXA Report ---
PROCEDURE: Dexa Spine and/or Hip INDICATIONS: POST MENOPAUSAL TECHNIQUE: Dual energy x-ray absorptiometry (DXA) was performed on a [employer] [facility]. Regions measur ed are the AP Spine, femoral neck, and if needed forearm. COMPARISON: DEXA 04/21/2019. FINDINGS: Lumbar Spine: Bone Mineral Density 1.153 g/cm/cm,T score -0.2, normal, significantly increased by 4.7% when comp ared to the DEXA from 04/21/2019 Left Femoral Neck: Bone Mineral Density 0.818 g/cm/cm, T score -1.6, osteopenia Left Hip: Bone Mineral Density 0.847 g/cm/cm,T score -1.3, osteopenia, significantly decreased by 7.5% when co mpared to the exam from 2018. (T score greater or equal to -1.0: NORMAL) (T score from -1.1 to -2.4: OSTEOPENIA) (T score less than or equal to -2.5 to: OSTEOPOROSIS) Impression: Bone mineral density within the osteopenia range at the left hip and left femoral neck. Density has d ecreased at the left hip and increased at the lumbar spine compared to the exam from 04/21/2019. Patients with diagnosis of osteoporosis or osteopenia should have regular bone mineral density assess ment. For those eligible for Medicare, routine testing is allowed once every 2 years. Testing frequ ency can be increased for patients who have rapidly progressing disease or for those who are receivin g medical therapy to restore bone mass. Reviewed by: Zaid Harmon MD on 11/28/2022 11:47 AM PST Approved by: Zaid Harmon MD on 11/28/2022 11:47 AM PST Station ID: [id number]
== END 2022-11-28 10:11 | disposition home or self-care (01) ==
LOC: DI 10:10
PROVIDERS: ATTEND Physician Assistant Medical
DX: Z78.0 Asymptomatic menopausal state (principal); M85.89 Other specified disorders of bone density and structure, multiple sites

== ENCOUNTER 2023-01-30 08:00 | Outpatient (CLI) | payer MEDICARE, OTHER | END 2023-01-30 23:59 | disposition home or self-care (01) | LOC: LAB.S 08:00 | PROVIDERS: ATTEND Physician Assistant Medical | DX: R30.0 Dysuria (principal) | CPT/HCPCS: 87086; 87181 ==

== ENCOUNTER 2023-09-08 11:00 | Outpatient (CLI) | payer MEDICARE, OTHER ==
[2023-09-08 11:29] LABS: BASOPHILS % (AUTO) 0.4 %; EOSINOPHILS # (AUTO) 0.2 10^3/uL (0.0-0.7); EOSINOPHILS % (AUTO) 4.3 %; HCT - HEMATOCRIT 43.6 % (37.0-47.0); HGB - HEMOGLOBIN 14.1 g/dL (12.0-16.0); LYMPHOCYTES # (AUTO) 1.5 10^3/uL (1.5-3.5); LYMPHOCYTES % (AUTO) 29.6 %; MEAN CORPUSCULAR HEMOGLOBIN 29.4 pg (27.0-31.0); MEAN CORPUSCULAR HGB CONC 32.3 g/dL (32.0-36.0); MEAN CORPUSCULAR VOLUME 90.8 fL (81.0-99.0); MEAN PLATELET VOLUME 9.4 fL (7.9-10.8); MONOCYTES # (AUTO) 0.3 10^3/uL (0.0-1.0); MONOCYTES % (AUTO) 5.6 %; NEUTROPHILS # (AUTO) 3.1 10^3/uL (1.5-6.6); NEUTROPHILS % (AUTO) 59.7 %; PLT - PLATELET COUNT 258 10^3/uL (130-450); RED CELL DISTRIBUTION WIDTH 12.6 % (12.0-15.0); WHITE BLOOD COUNT 5.1 x10^3/uL (4.8-10.8)
[2023-09-08 11:44] LABS: ALBUMIN 4.6 g/dL (3.2-5.5); ALBUMIN/GLOBULIN RATIO 1.8 (1.0-2.2); ALKALINE PHOSPHATASE 82 IU/L (42-121); ALT ALANINE AMINOTRANSFERASE 27 IU/L (10-60); AST ASPARTATE AMINOTRANSFERASE 20 IU/L (10-42); BILIRUBIN,TOTAL 0.4 mg/dL (0.2-1.0); BUN - BLOOD UREA NITROGEN 15 mg/dL (6-20); CALCIUM 10.9 mg/dL (8.5-10.3); CARBON DIOXIDE - CO2 30 mmol/L (21-32); CHLORIDE 104 mmol/L (101-111); CHOL/HDL RATIO 3.5 (<4.4); CHOLESTEROL 166 mg/dL; CREATININE 0.9 mg/dL (0.6-1.3); GFR - MDRD 62 (>89); GLUCOSE 96 mg/dL (74-104); HDL CHOLESTEROL 47 mg/dL; LDL CHOLESTEROL,CALCULATED 88 mg/dL; LDL/HDL RATIO 1.9 (<4.4); POTASSIUM 4.4 mmol/L (3.5-4.5); SODIUM 139 mmol/L (135-145); TOTAL PROTEIN 7.1 g/dL (6.4-8.9); TRIGLYCERIDES 154 mg/dL (48-352); VLDL CHOLESTEROL 31 mg/dL
== END 2023-09-08 11:01 | disposition home or self-care (01) ==
LOC: LAB 11:00
PROVIDERS: ATTEND Physician Assistant
DX: I10 Essential (primary) hypertension (principal); E78.5 Hyperlipidemia, unspecified
CPT/HCPCS: 36415; 80053; 80061; 83721; 85025

== ENCOUNTER 2023-11-05 10:29 | Outpatient (CLI) | payer MEDICARE, OTHER ==
[2023-11-05 10:40] LABS: BASOPHILS % (AUTO) 0.5 %; EOSINOPHILS # (AUTO) 0.2 10^3/uL (0.0-0.7); EOSINOPHILS % (AUTO) 2.8 %; HCT - HEMATOCRIT 46.3 % (37.0-47.0); HGB - HEMOGLOBIN 14.6 g/dL (12.0-16.0); LYMPHOCYTES # (AUTO) 1.3 10^3/uL (1.5-3.5); LYMPHOCYTES % (AUTO) 22.9 %; MEAN CORPUSCULAR HEMOGLOBIN 29.5 pg (27.0-31.0); MEAN CORPUSCULAR HGB CONC 31.5 g/dL (32.0-36.0); MEAN CORPUSCULAR VOLUME 93.5 fL (81.0-99.0); MEAN PLATELET VOLUME 9.4 fL (7.9-10.8); MONOCYTES # (AUTO) 0.3 10^3/uL (0.0-1.0); MONOCYTES % (AUTO) 5.8 %; NEUTROPHILS # (AUTO) 3.8 10^3/uL (1.5-6.6); NEUTROPHILS % (AUTO) 67.6 %; PLT - PLATELET COUNT 310 10^3/uL (130-450); RED BLOOD COUNT 4.95 10^6/uL (4.20-5.40); RED CELL DISTRIBUTION WIDTH 12.6 % (12.0-15.0); WHITE BLOOD COUNT 5.7 x10^3/uL (4.8-10.8)
[2023-11-05 10:48] LABS: CALCIUM, IONIZED 1.2 mmol/L (1.15-1.33); VBG PH 7.36 (7.31-7.41)
[2023-11-05 10:55] LABS: ALBUMIN 4.7 g/dL (3.2-5.5); ALKALINE PHOSPHATASE 80 IU/L (42-121); ALT ALANINE AMINOTRANSFERASE 18 IU/L (10-60); AST ASPARTATE AMINOTRANSFERASE 17 IU/L (10-42); BILIRUBIN,TOTAL 0.6 mg/dL (0.2-1.0); BUN - BLOOD UREA NITROGEN 22 mg/dL (6-20); CARBON DIOXIDE - CO2 27 mmol/L (21-32); CHLORIDE 104 mmol/L (101-111); CHOLESTEROL 147 mg/dL; CREATININE 0.9 mg/dL (0.6-1.3); GFR - MDRD 62 (>89); GLUCOSE 87 mg/dL (74-104); HDL CHOLESTEROL 49 mg/dL; LDL CHOLESTEROL,CALCULATED 70 mg/dL; LDL/HDL RATIO 1.4 (<4.4); POTASSIUM 3.9 mmol/L (3.5-4.5); SODIUM 137 mmol/L (135-145); TRIGLYCERIDES 138 mg/dL (48-352); VLDL CHOLESTEROL 28 mg/dL
== END 2023-11-05 10:30 | disposition home or self-care (01) ==
LOC: LAB 10:29
PROVIDERS: ATTEND Physician Assistant
DX: I10 Essential (primary) hypertension (principal); E78.5 Hyperlipidemia, unspecified; E83.52 Hypercalcemia
CPT/HCPCS: 36415; 80053; 80061; 82330; 83721; 85025

== ENCOUNTER 2023-11-12 16:49 | Outpatient (CLI) | payer MEDICARE, OTHER | END 2023-11-12 23:59 | disposition critical access hospital (66) | LOC: EMS 16:49 | DX: R11.2 Nausea with vomiting, unspecified (principal); R19.7 Diarrhea, unspecified; R10.30 Lower abdominal pain, unspecified | CPT/HCPCS: A0425; A0429 ==

== ENCOUNTER 2023-11-12 16:52 | Emergency (ER) | payer MEDICARE, OTHER ==
[2023-11-12 17:07] VITALS: O2SAT 98
[2023-11-12 17:17] LABS: BASOPHILS % (AUTO) 0.1 %; EOSINOPHILS % (AUTO) 0.2 %; HGB - HEMOGLOBIN 14.6 g/dL (12.0-16.0); LYMPHOCYTES # (AUTO) 0.4 10^3/uL (1.5-3.5); LYMPHOCYTES % (AUTO) 2.9 %; MEAN CORPUSCULAR HEMOGLOBIN 29.3 pg (27.0-31.0); MEAN CORPUSCULAR HGB CONC 32.4 g/dL (32.0-36.0); MEAN CORPUSCULAR VOLUME 90.2 fL (81.0-99.0); MEAN PLATELET VOLUME 9.3 fL (7.9-10.8); MONOCYTES # (AUTO) 0.3 10^3/uL (0.0-1.0); MONOCYTES % (AUTO) 2.3 %; NEUTROPHILS # (AUTO) 12.7 10^3/uL (1.5-6.6); NEUTROPHILS % (AUTO) 94.1 %; PLT - PLATELET COUNT 269 10^3/uL (130-450); RED BLOOD COUNT 4.99 10^6/uL (4.20-5.40); RED CELL DISTRIBUTION WIDTH 12.5 % (12.0-15.0); WHITE BLOOD COUNT 13.5 x10^3/uL (4.8-10.8)
[2023-11-12 17:28] LABS: ALBUMIN 4.9 g/dL (3.2-5.5); ALBUMIN/GLOBULIN RATIO 1.8 (1.0-2.2); ALKALINE PHOSPHATASE 80 IU/L (42-121); ALT ALANINE AMINOTRANSFERASE 26 IU/L (10-60); AST ASPARTATE AMINOTRANSFERASE 20 IU/L (10-42); BILIRUBIN,TOTAL 0.9 mg/dL (0.2-1.0); BUN - BLOOD UREA NITROGEN 26 mg/dL (6-20); CARBON DIOXIDE - CO2 22 mmol/L (21-32); CHLORIDE 109 mmol/L (101-111); CREATININE 0.9 mg/dL (0.6-1.3); GFR - MDRD 62 (>89); GLUCOSE 121 mg/dL (74-104); POTASSIUM 3.6 mmol/L (3.5-4.5); SODIUM 140 mmol/L (135-145); TOTAL PROTEIN 7.6 g/dL (6.4-8.9)
[2023-11-12 17:29] LABS: LIPASE < 10 U/L (11-82)
--- NOTE | 2023-11-12 17:37 | ED Physician Documentation ---
PD HPI NVD - Stated complaint Stated Complaint: V/D ABD PX - Chief complaint Chief Complaint: Abd Pain - History obtained from History obtained from: Patient, EMS - History of Present Illness Associated symptoms: Abdominal pain. No: Fever, Chest pain, Hematemesis, Melena, Hematochezia, Dizzy, Near syncope / syncope, Weight loss, Dysuria, Vaginal bleeding Contributing factors: No: Sick contact, Bad food, Travel, Recent antibiotics, Alcohol use, Anticoagulated, Diabetes Improved by: Vomiting Worsened by: Eating Similar symptoms before: Has not had sx before Recently seen: Not recently seen - Additonal information Additional information: Patient is a 73-year-old female who presents to the emergency department with nausea, vomiting, diarrhea and abdominal cramping today. Started approximately 5 hours prior to arrival. Nothing makes it better or worse. No fevers. No chills. No recent travel. No recent antibiotics. No bad food that she is aware of. No blood in the stool. No blood in the vomit. No abdominal surgeries. Review of Systems Constitutional: denies: Fever, Chills Respiratory: denies: Dyspnea, Cough GI: reports: Nausea, Vomiting, Diarrhea Skin: denies: Rash Musculoskeletal: denies: Neck pain, Back pain Neurologic: denies: Headache PD PAST MEDICAL HISTORY - Past Medical History Past Medical History: Yes Cardiovascular: None Respiratory: None Neuro: None Endocrine/Autoimmune: None GI: GER[employer]: None : None HEENT: None Psych: None Musculoskeletal: None Derm: None - Past Surgical History Past Surgical History: Yes General: Colonoscopy Ortho: Carpal Tunnel surgery, Other /[employer]: Hysterectomy, Oophrectomy HEENT: Tonsil/Adenoidectomy - Present Medications Home Medications: Ambulatory Orders Medication Instructions Recorded Confirmed Sertraline HCl [Zoloft] 100 mg ORAL DAILY 07/04/15 11/12/23 Atorvastatin [Lipitor] 10 mg PO DAILY 09/11/18 11/12/23 Omeprazole 20 mg PO DAILY 11/01/20 11/12/23 Ondansetron Odt [Zofran] 4 mg TL Q6H PRN #10 tablet 11/12/23 - Allergies Allergies/Adverse Reactions: Allergies Allergy/AdvReac Type Severity Reaction Status Date / Time No Known Drug Allergies Allergy Verified 11/12/23 16:58 - Social History Does the pt smoke?: No Smoking Status: Never smoker Does the pt drink ETOH?: No Does the pt have substance abuse?: No - Immunizations Immunizations are current?: Yes - POLST Patient has POLST: No PD ED PE NORMAL - Vitals Vital signs reviewed: Yes - General General: Alert and oriented X 3, No acute distress - HEENT HEENT: PERRL, Moist mucous membranes - Neck Neck: Supple, no meningeal sign - Cardiac Cardiac: RRR, Strong equal pulses - Respiratory Respiratory: No respiratory distress, Clear bilaterally - Abdomen Abdomen: Soft, Non tender, Non distended - Back Back: No CVA TTP, No spinal TTP - Derm Derm: Warm and dry - Extremities Extremities: No edema - Neuro Neuro: Alert and oriented X 3 - Psych Psych: Normal mood, Normal affect Results - Vitals Vitals: Vital Signs - 24 hr 11/12/23 11/12/23 11/12/23 16:56 16:58 18:46 Temperature 36.0 C L Heart Rate 93 93 87 Respiratory 20 16 18 Rate Blood Pressure 155/65 H 125/89 H 107/74 O2 Saturation 98 98 98 11/12/23 19:53 Temperature 36.3 C L Heart Rate 87 Respiratory 18 Rate Blood Pressure 107/74 O2 Saturation 98 Oxygen O2 Source Room air - Labs Labs: Laboratory Tests 11/12/23 11/12/23 11/12/23 17:11 17:11 18:57 WBC 13.5 H RBC 4.99 Hgb 14.6 Hct 45.0 MCV 90.2 MCH 29.3 MCHC 32.4 RDW 12.5 Plt Count 269 MPV 9.3 Neut # (Auto) 12.7 H Lymph # (Auto) 0.4 L [place] # (Auto) 0.3 Eos # (Auto) 0.0 Baso # (Auto) 0.0 Absolute Nucleated RBC 0.00 Nucleated RBC % 0.0 Sodium 140 Potassium 3.6 Chloride 109 Carbon Dioxide 22 Anion Gap 9.0 BUN 26 H Creatinine 0.9 Estimated GFR (MDRD) 62 L Glucose 121 H Calcium 10.0 Total Bilirubin 0.9 AST 20 ALT 26 Alkaline Phosphatase 80 Total Protein 7.6 Albumin 4.9 Globulin 2.7 Albumin/Globulin Ratio 1.8 Lipase < 10 L Urine Color YELLOW Urine Clarity CLEAR Urine pH 5.5 Ur Specific [place] 1.025 Urine Protein NEGATIVE Urine Glucose (UA) NEGATIVE Urine Ketones 15 H Urine Occult Blood NEGATIVE Urine Nitrite NEGATIVE Urine Bilirubin NEGATIVE Urine Urobilinogen 0.2 (NORMAL) Ur Leukocyte Esterase TRACE H Urine RBC 0-5 Urine WBC 4-5 Ur Squamous Epith Cells RARE Squamous Urine Bacteria None Seen Ur Microscopic Review INDICATED Urine Culture Comments INDICATED PD Medical Decision Making - ED course Complexity details: reviewed results, re-evaluated patient, considered differential, d/w patient ED course: Patient is very well-appearing, nontoxic. Afebrile. Given Dilaudid, Zofran, IV fluids. Abdomen remains soft, nontender nondistended on serial exam. Nausea and vomiting resolved. No blood in the stool. No recent antibiotics or travel. No evidence of C. difficile. Appears to be likely viral gastroenteritis. No indication for CT scan at this time. Tolerating p.o. without difficulty here. We will continue supportive care and have her follow-up with her doctor. Patient counseled regarding signs and symptoms for which I believe and urgent re- evaluation would be necessary. Patient with good understanding of and agreement to plan and is comfortable going home at this time This document was made in part using voice recognition software. While efforts are made to proofread this document, sound alike and grammatical errors may occur. Departure - Departure Disposition: 01 Home, Self Care Clinical Impression: Viral gastroenteritis Vomiting Qualifiers: Vomiting type: unspecified Nausea presence: with nausea Qualified Code(s): R11.2 - Nausea with vomiting, unspecified Diarrhea Qualifiers: Diarrhea type: unspecified type Qualified Code(s): R19.7 - Diarrhea, unspecified Condition: Good Instructions: ED Gastroenteritis Viral Follow-Up: your,doctor as needed [Other] Prescriptions: Ondansetron Odt [Zofran] 4 mg TL Q6H PRN #10 tablet PRN Reason: Nausea / Vomiting Comments: Your prescriptions were sent to [facility] in [place]. Please follow-up with your doctor for further care. Please return if you worsen. You can use the Zofran as needed for any nausea and vomiting. Make sure you are drinking plenty of fluids at home. The diarrhea usually resolves in 2 to 3 days. Forms: PCP List Discharge Date/Time: 11/12/23 19:53
[2023-11-12] MEDS: HYDROmorphone 1 MG/ML CARPUJECT IVP STA (17:45)
[2023-11-12] MEDS: ONDANSETRON 4 MG/2 ML VIAL IVP STA (17:48)
[2023-11-12] MEDS: SODIUM CHLORIDE 0.9% 1,000 ML IV STA (17:49)
[2023-11-12 18:48] VITALS: BP 107/74
[2023-11-12 19:07] LABS: BILIRUBIN,URINE NEGATIVE (NEGATIVE); GLUCOSE, URINE (UA) NEGATIVE (NEGATIVE); KETONES,URINE (UA) 15 mg/dL (NEGATIVE); LEUKOCYTE ESTERASE, URINE TRACE (NEGATIVE); NITRITE,URINE NEGATIVE (NEGATIVE); OCCULT BLOOD,URINE NEGATIVE (NEGATIVE); PH,URINE 5.5 PH (5.0-7.5); PROTEIN,URINE NEGATIVE (NEGATIVE); UROBILINOGEN,URINE 0.2 (NORMAL) E.U./dL (NORMAL)
[2023-11-12 19:11] LABS: CLARITY,URINE CLEAR (CLEAR)
[2023-11-12 19:15] LABS: BACTERIA,URINE None Seen /HPF (None Seen); RBC,URINE 0-5 /HPF (0-5); SQUAMOUS EPITHELIAL CELL,UR RARE Squamous (<= Few)
== END 2023-11-12 19:53 | disposition home or self-care (01) ==
LOC: EDUNIT# → ED 16:52
DX: A08.4 Viral intestinal infection, unspecified (principal); Z79.899 Other long term (current) drug therapy
CPT/HCPCS: 36415; 80053; 81001; 81003; 83690; 85025; 87086; 96374; 96375; 99283

== ENCOUNTER 2023-12-19 10:14 | Outpatient (CLI) | payer MEDICARE, OTHER ==
--- NOTE | 2023-12-22 09:07 | Mammography Report ---
BILATERAL DIGITAL SCREENING MAMMOGRAM 3D/2D: 12/19/2023 CLINICAL: Routine screening. Comparison is made to exams dated: 11/28/2022 mammogram - [facility], 09/29/2020 mammo [facility], 06/22/2019 mammogram, 09/29/2017 mammogram, and 06/25/2016 mammogram - [facility]. There are scattered areas of fibroglandular density in both breasts (category b / 25%-50% glandular t issue). No significant masses, calcifications, or other findings are seen in either breast. There has been no significant interval change. IMPRESSION: NEGATIVE There is no mammographic evidence of malignancy. A 1 year screening mammogram is recommended. Based on the Tyrer Cuzick model (a risk assessment model) the patient's lifetime risk is 3.3% and her 10 year risk is 2.2%. According to the ACR, ACS, and NCCN guidelines, an annual breast MRI exam nika g with mammogram is recommended if the patient's lifetime risk is 20% or greater. This exam was interpreted at Station ID: [id number]. NOTE: For mammograms, a report in lay terms will be sent to the patient. Approximately 15% of breast malignancies will not be visualized mammographically. In the management of a palpable breast mass, a negative mammogram must not discourage biopsy of a clinically suspicious lesion. Electronically Signed By: Becky osborn/yari:12/19/2023 17:38:39 ACR BI-RADS Category 1: Negative 3341F PARENCHYMAL PATTERN: (A) - The breast(s) demonstrate(s) scattered fibroglandular densities. BI-RADS CATEGORY: (1) - 1 RECOMMENDATION: (ANNUAL) - Recommend routine annual screening mammography. [id number] 1 year screening LATERALITY: (B)
== END 2023-12-19 10:15 | disposition home or self-care (01) ==
LOC: DI 10:14
DX: Z12.31 Encounter for screening mammogram for malignant neoplasm of breast (principal); R92.323 Mammographic fibroglandular density, bilateral breasts

== ENCOUNTER 2024-05-01 08:00 | Outpatient (CLI) | payer MEDICARE, OTHER | END 2024-05-01 23:59 | disposition home or self-care (01) | LOC: LAB 08:00 | PROVIDERS: ATTEND Physician Assistant | DX: R30.0 Dysuria (principal) | CPT/HCPCS: 87086 ==

== ENCOUNTER 2024-05-06 09:54 | Outpatient (CLI) | payer MEDICARE, OTHER ==
[2024-05-06 10:24] LABS: CREATININE,URINE 36.2 mg/dL
[2024-05-06 10:26] LABS: CALCIUM 9.6 mg/dL (8.5-10.3); CREATININE 0.9 mg/dL (0.6-1.3); POTASSIUM 3.9 mmol/L (3.5-4.5)
[2024-05-06 10:31] LABS: MICROALBUMIN,URINE < 0.7 mg/dL
== END 2024-05-06 09:55 | disposition home or self-care (01) ==
LOC: LAB 09:54
PROVIDERS: ATTEND Physician Assistant
DX: N18.2 Chronic kidney disease, stage 2 (mild) (principal)
CPT/HCPCS: 36415; 80048; 82043; 82570